=== PATIENT | male | born 1985 | race Caucasian/White ===

== ENCOUNTER 2017-07-24 16:03 | Outpatient (CLI) | payer OTHER ==
--- NOTE | 2017-07-25 10:05 | XRAY Report ---
THREE VIEW LEFT ANKLE: 07/24/2017 CLINICAL INDICATION: Pain. FINDINGS: AP, lateral, oblique views of the left ankle demonstrate pes planus. There is no evidence of acute fracture. No effusion is seen. The mortise is preserved. IMPRESSION: PES PLANUS. NO EVIDENCE OF ACUTE FRACTURE. TD: 07/25/2017 10:04
== END 2017-07-24 16:04 | disposition home or self-care (01) ==
LOC: DI 16:03
PROVIDERS: ATTEND Internal Medicine
DX: M21.42 Flat foot [pes planus] (acquired), left foot (principal); M21.172 Varus deformity, not elsewhere classified, left ankle; M25.572 Pain in left ankle and joints of left foot